=== PATIENT | female | born 2000 | race Hispanic/Latino ===

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

== ENCOUNTER 2023-08-19 00:49 | Emergency (ER) | payer OTHER | END 2023-08-19 02:52 | disposition home or self-care (01) | LOC: ERS 00:49 | DX: S61.252A Open bite of right middle finger without damage to nail, initial encounter (principal); S61.232A Puncture wound without foreign body of right middle finger without damage to nail, initial encounter; S61.214A Laceration without foreign body of right ring finger without damage to nail, initial encounter; W54.0XXA Bitten by dog, initial encounter ==